=== PATIENT | male | born 1985 | race Caucasian/White ===

== ENCOUNTER 2024-05-19 12:25 | Emergency (ER) | payer BC, SELFPAY ==
[2024-05-19 12:28] VITALS: BP 138/84
[2024-05-19 12:51] LABS: % Basophils 0.9 % (0-2); % Eosinophils 1.1 % (0-6); % Immature Granulocytes 0.2 % (0-0.5); % Lymphocytes 31.9 % (20.5-51.1); % Monocytes 7.8 % (1.7-9.3); % Neutrophils 58.1 % (42.2-75.2); Absolute Basophils 0.1 10^3/uL (0-0.2); Absolute Eosinophils 0.1 10^3/uL (0-0.7); Absolute Lymphocytes 1.8 10^3/uL (1.2-3.4); Absolute Monocytes 0.4 10^3/uL (0.1-0.6); Absolute Neutrophils 3.3 10^3/uL (1.4-6.5); Hematocrit 44.5 % (39.0-52.0); Hemoglobin 15.4 g/dL (13.0-18.0); Mean Corp Hgb Conc. 34.6 g/dL (33.0-37.0); Mean Corpuscular Hgb 31.5 pg (27.0-31.0); Mean Platelet Volume 10.3 fL (7.4-10.4); Nucleated Red Blood Cells % 0 % (-); Platelet Count 202 10^3/uL (130-400); Red Blood Cell Count 4.89 10^6/uL (4.70-6.10); Red Cell Dist. Width 12.1 % (11.5-14.5); White Blood Cell Count 5.7 10^3/uL (4.8-10.8)
[2024-05-19 13:03] LABS: ALT (SGPT) 30 U/L (0-50); AST (SGOT) 37 U/L (17-59); Albumin 4.8 g/dl (3.5-5.0); Alkaline Phosphatase 70 U/L (38-126); Blood Urea Nitrogen 12 mg/dl (9-20); Calcium 9.5 mg/dl (8.4-10.2); Carbon Dioxide 27 mmol/L (22-30); Chloride 102 mmol/L (98-107); Glucose 99 mg/dl (70-99); Potassium 4.2 mmol/L (3.5-5.1); Sodium 137 mmol/L (135-145); Total Bilirubin 1.1 mg/dl (0.2-1.3); Total Protein 7.6 g/dl (6.3-8.2); eGFR > 60.00
[2024-05-19 13:14] VITALS: BP 120/83
[2024-05-19 13:15] VITALS: BMI 23.1
[2024-05-19 13:33] LABS: Troponin I < 0.012 ng/ml
[2024-05-19 14:00] VITALS: BP 114/76
[2024-05-19 15:00] VITALS: BP 118/78
--- NOTE | 2024-05-19 15:20 | ED.GENMED ---
History of Present Illness
General
Chief Complaint: Numbness
Source: patient
Time Seen by Provider: 05/19/24 14:23
History of Present Illness
History of Present Illness:
38-year-old male with past medical history of migraines presenting to the emergency department for evaluation after yesterday he noticed a gradual onset of left-sided neck discomfort which persisted this morning and was accompanied with right little
finger and ring finger paresthesia which prompted him to come to the ER. Patient states that the neck discomfort seems to be improving however still notes the right hand paresthesia. States his main concern was that his father and grandfather
at a young age from sudden cardiac arrest. He denies any chest pain, shortness of breath, palpitations, diaphoresis, visual disturbances, headache or any other concerns at this present time. He did not take any medications prior to
arrival. He does note that sometimes he will get a paresthesia when he is going to experience a migraine headache.
Past History
Past History
ED Past Medical History: Other (Migraines)
ED Past Surgical History: Other (Hernia repair)
Social History
Tobacco: Non-smoker
Alcohol: None
Drug: None
Personal:
Living: with family
Employment: Employed
Review of Systems
Review of Systems
All Other Systems: ROS reviewed and negative except as documented in HPI and ROS
Phy Exam
Physical Exam
Physical Exam:
GENERAL: Alert , in no apparent distress
EYE: conjunctiva clear, pupils 3 mm bilateral, EOMI
NECK: Supple, no significant adenopathy.
ENT: o/p clr, mmm.
CARDIAC: Regular rate and rhythm
LUNGS: Clear breath sounds bilaterally, no acute respiratory distress, no wheezes/rales/rhonchi
NEUROLOGICAL: Alert and oriented x 3, moves all extremities, no facial drooping or slurred speech, no sensory deficits, no dysmetria, dysarthria or aphasia
SKIN: Warm and dry, skin intact.
MUSCULOSKELETAL: well perfused.
PSYCH: Normal and appropriate interaction.
Scores
Heart Failure Risk
Heart Failure Risk Score: Not Applicable
Heart Score for Chest Pain Patients
STEMI patient?: Not applicable
Withdrawal Assessment of Alcohol
Withdrawal Assessment Completed?: Not applicable
Course
Orders/Labs/Results
Orders:
Orders
05/19/24 12:33
Electrocardiogram (*1) Urgent
Reason for Study: Chest Pain
EKG- Treatment ONCE
05/19/24 12:42
Complete Blood Count/With Diff Urgent
Comprehensive Metabolic Panel Urgent
Troponin I Urgent
05/19/24 14:32
CT Head W/o Iv Contrast Urgent
Comment:
Reason For Exam: left sided head/neck ache, right hand paresthesia
Abnormal Lab Results
05/19/24
12:42
MCH 31.5 H pg
(27.0-31.0)
05/19/24 12:42
05/19/24 12:42
Vital Signs
Initial and Last Documented VS:
Initial Vital Signs
Pulse Resp BP Pulse Ox
79 17 138/84 100
05/19/24 12:28 05/19/24 12:28 05/19/24 12:28 05/19/24 12:28
Last Documented Vital Signs
Temp Pulse Resp BP Pulse Ox
97.9 F 59 13 131/81 99
05/19/24 12:30 05/19/24 16:52 05/19/24 16:52 05/19/24 16:52 05/19/24 16:52
MDM/Problems Addressed
Differential Diagnosis Includes:
Musculoskeletal etiology, radiculopathy, I did consider CVA/dissection however given lack of risk factors combined with presentation I have less concern for neurologic etiology.
MDM/Problems Addressed:
38-year-old male presenting the emergency department for evaluation of left-sided neck discomfort and started with right hand paresthesia today. Physical exam findings are reassuring and without any focality. If this were an acute neurologic event
I would expect the entirety of the right upper extremity to be affected which it is not. Patient is overall very well-appearing, hemodynamically stable, normotensive and overall has minimal risk factors for ACS or an acute neurologic event. Labs
and EKG that were initiated in triage are all unremarkable. Will obtain head CT although I have less suspicion for any acute neurologic event. Anticipate discharge home pending remaining workup
*Radiology
Radiology exam reviewed: radiology read reviewed
*Pulse Oximetry
Patient hypoxic: no
*EKG
Interpreted by ED Provider?: Yes
Comparison EKG: no changes
Heart Rate: 60
Rate: normal
Rhythm: sinus
Ischemia: no ischemia
*Senior [employer] Interpretation
Rate: normal
Rhythm: sinus
*Critical Care Note
Total Time (30-74mins, 75-104mins- exclusive of procedures): Not Applicable
Patient Management
Escalation/DeEscalation of care consider admission/obs:
Patient's imaging without any acute abnormalities. He is otherwise feeling well. Stable for discharge home and outpatient management. Aware of return precautions to the ER.
ED Attending Note
-
Portions of this chart may have been created with voice recognition software.� Occasional wrong word or��sound alike� substitutions may have occurred due to the inherent limitations of voice recognition software.
Discharge Plan
Departure
Patient Disposition: Home (Routine Discharge)
Date of Disposition: 05/19/24
Time of Disposition: 16:35
Patient with high blood pressure during this ER visit?: No
Discharge Problem:
Paresthesia
Instructions: Paresthesia (DC)
Prescriptions:
No Action
No Current Medications
0
Referrals:
Judie Moore CRNP [Family Provider] -
Interventions
Interventions:
*Risk Screen - Suicide Last Done: 05/19/24 12:28
*General Assessment Last Done: 05/19/24 12:28
*Neglect/Abuse Screening Last Done: 05/19/24 12:28
ED- Fall Risk Assessment Last Done: 05/19/24 13:15
*ED COVID-19 Vaccine History Last Done: 05/19/24 12:28
*Nursing Disposition Last Done: 05/19/24 16:53
ED- Neurological Assessment Last Done: 05/19/24 13:15
Discharge Date and Time
Discharge Date/Time: 05/19/24 16:54
Print Language: CHADIAN
[2024-05-19 16:52] VITALS: BP 131/81
== END 2024-05-19 16:54 | disposition home or self-care (01) ==
LOC: EMR 12:25
PROVIDERS: Emergency Medicine; EMERGENCY PHYSICIAN Emergency Medicine; FAMILY PHYSICIAN Nurse Practitioner Adult Health
DX: R20.2 Paresthesia of skin (principal); M54.2 Cervicalgia; G43.909 Migraine, unspecified, not intractable, without status migrainosus
CPT/HCPCS: 99284; 70450; 80053; 84484; 85025; 93005